=== PATIENT | male | born 1970 | race Caucasian/White ===

== ENCOUNTER 2021-04-03 14:57 | Observation (INO) | payer BC, SELFPAY ==
[2021-04-03] VITALS (18 sets, daily range): BP systolic 122–137; BP diastolic 87–105; PULSE 92–106; RESP 13–21; TEMP 36.1–36.5; O2SAT 95–100; BMI 27.9
--- NOTE | ~2021-04-03 | CT_ITS ---
EXAMINATION: CTA brain carotid EXAM DATE: 04/03/2021 19:08 INDICATION: Transient alteration of awareness. Transient ischemic attack. TECHNIQUE: Spiral CTA of the carotid arteries was performed with intravenous injection 100 cc of Om nipaque 350. Axial, coronal, sagittal reformatted images reviewed. Additional reformatted images cre ated on dedicated 3-D workstation. NASCET comparable standard used to assess the degree of arterial stenosis. Spiral CT angiogram cerebral arteries performed with the same intravenous injection of con trast. Source images of the brain CTA transferred to dedicated workstation for 3-D rotational image c reation. Coronal, sagittal maximum intensity pixel images also reviewed. The dose-length product (D LP) for this examination was 1309.93 mGy-cm. The exposure was tailored according to patient size, a nd iterative reconstruction (ASIR) was used as additional dose reduction technique. Correlation is ma de to noncontrast head CT same date. FINDINGS: There is bilateral carotid bulb 0% stenosis. The right vertebral artery is dominant. There is right-sided posterior communicating artery dominant posterior cerebral artery. There is left-sided posterior communicating artery dominant posterior cerebral artery. There is no carotid or vertebra l basilar arterial dissection or fibromuscular dysplasia. There are no cerebral artery aneurysms. The re is symmetric cerebral artery arborization. The sagittal, transverse and sigmoid sinuses enhance no rmally, no venous sinus thrombosis. Internal cerebral veins also enhance normally. Incidental Findings: Mild to moderate cervical spondylosis. IMPRESSION: 1. No acute carotid or intracranial findings. 2. Bilateral carotid 0% stenosis. Reviewed, dictated and finalized at location G. L OWNER OPERATOR TRUCK DRIVER
--- NOTE | ~2021-04-03 | XR_ITS ---
EXAMINATION: XR chest 2V EXAM DATE: 04/03/2021 17:41 INDICATION: PT Episode Of Confusion Today,No Hx. TECHNIQUE: Frontal and lateral projections of the chest obtained and reviewed. There is no prior musa dy for comparison. FINDINGS: The lungs are clear. There are no pleural effusions. The cardiomediastinal silhouette is within normal limits. There is no pneumothorax suspected. The bones and soft tissues are unremarkab le. IMPRESSION: No acute cardiopulmonary findings. Reviewed, dictated and finalized at location G. EMS DESIGN ENGINEER
--- NOTE | ~2021-04-03 | MR_ITS ---
EXAMINATION: MR brain/brain stem wo con EXAM DATE: 04/04/2021 12:12 INDICATION: Transient alteration of awareness, transient ischemic attack. TECHNIQUE: Magnetic resonance imaging (MRI) of the brain/brain stem obtained without contrast. Sagitt al T1, axial diffusion, gradient echo (T2*), T1, T2, FLAIR sequences obtained. There is no prior st udy for comparison. FINDINGS: There are no areas of restricted diffusion to suggest acute infarction. There is no acute hemorrhage seen on the T2*, a hemosiderin sensitive sequence. No intraparenchymal brain mass. The ve ntricles are normal in size. There are no extra-axial collections. Flow voids are seen in the cereb ral arteries on the T2-weighted sequences consistent with their expected patency. The orbits are unr emarkable. Soft tissue is unremarkable. Mild ethmoid mucoperiosteal thickening. Small maxillary si nus retention cysts or polyps. IMPRESSION: 1. Unremarkable brain MRI examination. Reviewed, dictated and finalized at location B. MYSQL DEVELOPER
--- NOTE | ~2021-04-03 | CT_ITS ---
EXAMINATION: CT brain wo con EXAM DATE: 04/03/2021 16:14 INDICATION: Altered mental status. Sudden onset confusion today while on treadmill. TECHNIQUE: Spiral CT of the head was performed without contrast. Axial, coronal and sagittal images were reviewed. The dose-length product (DLP) for this examination was 681.00 mGy-cm. The exposure w as tailored according to patient size, and iterative reconstruction (ASIR) was used as additional dos e reduction technique. There is no prior study for comparison. FINDINGS: There is no acute intraparenchymal hemorrhage. No evidence of intraparenchymal brain mass lesion. No evidence of acute infarction. There is no mass effect or midline shift. The ventricles are normal in size. There are no extra-axial collections. There are no acute calvarial fractures. T he orbits are unremarkable. Soft tissue is unremarkable. Mild left ethmoid mucoperiosteal thickenin g. IMPRESSION: 1. No acute intracranial findings. Reviewed, dictated and finalized at location G. AWER
[2021-04-03 15:12] LABS: Glucose Point of Care 97 mg/dl (65-105)
--- NOTE | 2021-04-03 15:46 | ECG_ITS ---
Measurements Intervals [place] Rate: 102 P: 46 MS: 135 QRS: -40 QRSD: 94 T: 23 QT: 314 QTc: 410 Interpretive Statements SINUS TACHYCARDIA LEFT AXIS DEVIATION BORDERLINE R WAVE PROGRESSION, ANTERIOR LEADS MINIMAL Q WAVES- HIGH LATERAL LEADS BASELINE ARTIFACT- I, III, AVL, V1 BORDERLINE ECG Electronically Signed On 04-03-2021 20:16:04 ADVERTISING SALES ASSISTANT by Rickey Brink D.O.
--- NOTE | 2021-04-03 15:59 | ED.AMS ---
HPI - Altered Mental Status General Chief Complaint: Altered Mental Status Stated Complaint: CONFUSION Time Seen by Provider: 04/03/21 15:58 Source: patient Mode of arrival: ambulatory Limitations: no limitations History of Present Illness HPI narrative: Patient is a 51-year-old male complaining of sudden onset of confusion while walking on a treadmill at the gym. Patient denies any speech or visual disturbance, focal weakness or numbness, unsteady gait, chest pain, shortness of breath, abdominal pain, nausea, vomiting, diarrhea, diaphoresis, fever or chills. Patient has no complaints at this time. Patient is alert and oriented x2, gave the wrong month but the right year. Related Data Allergies Allergy/AdvReac Type Severity Reaction Status Date / Time shellfish derived Allergy Unknown Verified 04/03/21 15:44 Review of Systems Review of Systems: All systems reviewed & are unremarkable except as noted in HPI and below Constitutional: Constitutional: Denies body ache(s), Denies chills, Denies excessive sweating, Denies fatigue, Denies fever(s), Denies headache(s), Denies lethargy, Denies malaise, Denies weakness and Denies weight loss Eyes: Eyes: Denies blurry vision, Denies change in vision and Denies loss of vision ENT: Denies dizziness, Denies ear discharge, Denies headache(s), Denies lip swelling, Denies epistaxis, Denies nasal congestion, Denies neck pain, Denies throat swelling and Denies tongue swelling Cardiovascular: Cardiovascular: Denies chest pain, Denies chest pain at rest, Denies chest pain with activity, Denies diaphoresis, Denies rapid heart rate, Denies edema, Denies irregular heart rhythm, Denies lightheadedness, Denies palpitations, Denies dyspnea and Denies dyspnea on exertion Respiratory: Respiratory: Denies chest congestion, Denies cough, Denies hemoptysis, Denies dyspnea and Denies dyspnea on exertion Gastrointestinal: Gastrointestinal: Denies abdominal pain, Denies melena, Denies hematochezia, Denies diarrhea, Denies nausea, Denies vomiting and Denies hematemesis Musculoskeletal: Musculoskeletal: Denies abnormal gait, Denies deformity, Denies joint swelling, Denies limited range of motion, Denies neck pain and Denies numbness Neurologic: Denies Abnormal speech present, Denies abnormal gait, Denies dizziness, Denies headache(s), Denies focal weakness, Denies loss of vision, Denies numbness, Denies Other visual disturbances, Denies Sensory deficit (Neuro) and Denies weakness Psychiatric: Psychiatric: Denies confusion, Denies depression, Denies auditory hallucinations, Denies homicidal ideation and Denies suicidal ideation Endocrine: Endocrine: Denies cold intolerance, Denies excessive sweating, Denies fatigue, Denies heat intolerance and Denies palpitations Hematologic/Lymphatic: Hematologic/Lymphatic: Denies easy bleeding and Denies easy bruising Allergic/Immunologic: Allergic/Immunologic: Denies lip swelling, Denies throat swelling and Denies tongue swelling PMFSH Comments Past medical history: None Family history: Negative for CVA, aneurysm, RI or coronary disease Social history: Non-smoker no EtOH or drug use Exam Const: General: cooperative, healthy appearing, comfortable, no acute distress, well developed, alert and awake; No confusion Orientation/consciousness: oriented to person, oriented to place, oriented to time, patient oriented x3 and No confusion Limitations: no limitations HENMT: Head: normal to inspection, normocephalic and atraumatic Ears: hearing grossly normal bilaterally, TM normal on the right and TM normal on the left General nose exam: Normal external nose present, Normal nares present and No nasal discharge present Face and sinus: normal facial exam Mouth: Yes Normal oral and palatal mucosa present, Yes lip normal, Yes tongue normal and Yes oropharynx normal Throat: posterior oropharynx normal, tonsils normal and uvula midline Eyes: General: appearance normal, both eyes and all relat
[2021-04-03 16:12] LABS: Basophils Absolute Auto 0.1 K/mm3 (0.0-0.1); Basophils Percent Auto 0.6 % (0.2-1.2); Eosinophils Percent Auto 0.3 % (0-4.4); Hematocrit 48.4 % (42.0-52.0); Hemoglobin 16.6 g/dL (14.0-18.0); Immature Granulocyte Absolute 0.06 K/mm3 (0.00-0.031); Immature Granulocyte Percent A 0.4 % (0-0.5); Lymphocytes Absolute Auto 1.28 K/mm3 (0.9-3.2); Lymphocytes Percent Auto 8.6 % (18.3-44.2); Mean Corpuscular HGB Conc 34.3 g/dl (32-36); Mean Corpuscular Hemoglobin 30.2 pg (26-34); Mean Platelet Volume 8.9 fl (7.4-10.4); Monocytes Absolute Auto 0.6 K/mm3 (0.1-0.6); Monocytes Percent Auto 4.3 % (2.6-8.5); Neutrophils Absolute Auto 12.7 K/mm3 (1.3-6.7); Neutrophils Percent Auto 85.8 % (45.5-73.1); Platelet Count Result 266 k/mm3 (150-375); White Blood Count 14.9 K/mm3 (4.5-10.0)
[2021-04-03 16:15] LABS: Add Urine Microscopic? NO; Appearance Urine Clear (Clear); Bilirubin Urine Negative (Negative); Blood Urine Negative (Negative); Color Urine Yellow (Yellow); Glucose Urine UA Negative (Negative); Ketones Urine Negative (Negative); Leukocyte Esterase Ur Negative LEU/UL (Negative); Nitrate Urine Negative (Negative); Protein Urine Negative (Negative); Specific Grav Ur 1.016 (1.001-1.035); Urobilinogen Urine Negative mg/dL (<2.0)
[2021-04-03 16:21] LABS: Prothrombin Time 12.8 Seconds (11.1-14.7)
[2021-04-03 16:22] LABS: Partial Thromboplastin Time 25.8 SECONDS (22.3-36.8)
[2021-04-03 16:25] LABS: Alanine Aminotransferase 24 U/L (4-50); Albumin Level 4.9 g/dL (3.5-5.1); Alkaline Phosphatase 60 U/L (38-126); Anion Gap 6 mmol/L (8-16); Aspartate Amino Transferase 24 U/L (17-59); Bilirubin,Total 0.8 mg/dL (0.2-1.3); Blood Urea Nitrogen 13 mg/dL (9-20); Calcium 9.5 mg/dL (8.4-10.2); Carbon Dioxide 30 mmol/L (22-30); Chloride 104 mmol/L (98-107); Estimated CRCL calculation 84 ml/min; Estimated Glomerular Filt Rate > 60; Glucose 111 mg/dL (65-110); Sodium 140 mmol/L (137-145)
[2021-04-03 17:03] LABS: Amphetamine Screen Urine Negative (Negative); Barbiturate Screen Urine Negative (Negative); Benzodiazepines Screen Urine Negative (Negative); Cannabinoid Screen Urine Negative (Negative); Cocaine Screen Urine Negative (Negative); Methadone Screen Urine Negative (Negative); Opiate Screen Urine Negative (Negative); Phencyclidine Screen Urine Negative (Negative)
[2021-04-03] MEDS: SODIUM CHLORIDE 0.9% IV 1,000 ML 999 ML IV CONT (17:08)
--- NOTE | 2021-04-03 19:52 | PM.IMHP ---
H&P: HPI History of Present Illness Date/Time: 04/03/21 19:52 Chief Complaint: Altered mental status Narrative: This is a 51-year-old male with known significant past medical history. Patient presents today to the emergency room after he had an episode confusion, disorientation, he did know or he was at while he was at the gym who contacted his and came over to picking up patient was noted not to remember none of these and repetitive questions according to the . At the time of my visit patient was aware of where he was at however patient with no recollection of above-mentioned event seemed appropriate knew the date where he was at and why he was here. He has been in his usual state of health up until this he denies any fevers, rigors, chills, vision changes, headaches, dizziness, vertigo, lightheadedness ,near-syncope, syncope, nausea, vomiting, abdominal pain, diarrhea, calves pain, chest pain, palpitations, PND or orthopnea,no rashes,no muscle pain or aches, no joint swelling, patient has been in a health roll and has lost 70 lb intentionally with diet and exercise. Preliminary workup has been essentially nonrevealing. Patient is been admitted for further evaluation management and treatment. Review of Systems Review of Systems: Confusion, disorientation. Constitutional: Constitutional: Denies chills, Denies daytime sleepiness, Denies difficulty sleeping, Denies excessive sweating, Denies fatigue, Denies fever(s), Denies frequent falls, Denies headache(s), Denies lethargy, Denies malaise, Denies night sweats, Denies poor appetite, Denies weakness and Reports weight loss (Intentional with diet and exercise of 70 lb) Eyes: Eyes: Denies change in vision, Denies diplopia, Denies loss of vision and Denies other visual disturbances ENT: Denies dysphagia, Denies vertigo, Denies dizziness, Denies nasal congestion, Denies nasal discharge, Denies nasal obstruction and Denies odynophagia Cardiovascular: Cardiovascular: Denies chest pain, Denies chest pain with activity, Denies diaphoresis, Denies pedal edema, Denies edema, Denies irregular heart rhythm, Denies claudication, Denies leg ulcers, Denies leg edema, Denies lightheadedness, Denies radiating jaw, neck or arm pain, Denies palpitations, Denies dyspnea on exertion, Denies orthopnea and Denies paroxysmal nocturnal dyspnea Gastrointestinal: Gastrointestinal: Denies abdominal pain, Denies dyspepsia, Denies heartburn, Denies diarrhea, Denies nausea and Denies vomiting Genitourinary: Genitourinary: Denies dysuria and Denies flank pain Musculoskeletal: Musculoskeletal: Denies abnormal gait, Denies back pain, Denies myalgias, Denies arthralgias, Denies joint swelling, Denies limited range of motion, Denies muscle cramps, Denies muscle weakness, Denies neck pain and Denies tingling Integumentary/Breasts: Skin/Breast: Denies rash Neurologic: Denies Neuro-related abnormal movements, Denies Abnormal speech present, Denies abnormal gait, Denies behavioral changes, Reports confusion, Denies vertigo, Denies dizziness, Denies headache(s), Denies focal weakness, Denies loss of vision, Denies Sensory deficit (Neuro), Denies tingling, Denies paresthesias, Denies tremor(s), Denies disequilibrium and Denies weakness Psychiatric: Psychiatric: Reports no additional psychiatric complaints and Reports as per HPI Endocrine: Endocrine: Denies cold intolerance, Denies excessive sweating, Denies fatigue, Denies flushing, Denies heat intolerance, Denies polyphagia, Denies polydipsia, Denies polyuria and Denies palpitations Hematologic/Lymphatic: Hematologic/Lymphatic: Reports no additional hematologic/lymphatic complaints and Reports as per HPI Allergic/Immunologic: Allergic/Immunologic: Reports no additional allergic/immunologic complaints and Reports as per HPI [facility] Social History Social History Smoking status: Never smoker Second hand tobacco smoke exposure: No Alcohol intake: never Substance use type: does no
[2021-04-03] MEDS: LACTATED RINGERS 1,000 ML 125 ML IV CONT (20:01)
[2021-04-03 20:42] LABS: SARS-CoV-2 RNA PCR Negative
[2021-04-03 21:25] LABS: Troponin I < 0.012 ng/mL (0.000-0.034)
--- NOTE | 2021-04-03 22:44 | ADMGEN ---
This patient, Ben Simon, was admitted to Medical Room 261-01. Patient/family oriented to hospital policies and general routines including ID bracelet, bed and alarms, visiting hours, pain management, procedures, bathroom and other care routines, personal items, smoking policy, room service/diet, and visiting hours. Information on how to activate the Rapid Response Team has been discussed. Patient/Family are encouraged to report perceived risks to care and to ask questions if they do not understand what they are told or what they should do.
--- NOTE | 2021-04-04 | ECHO_ITS ---
Patient Info Name: Ben Simon Age: 51 years : 1970 Gender: Male Ht: 68 in Wt: 200 lbs BSA: 2.11 m2 HR: 86 bpm BP: 131 / 89 mmHg Heart Rhythm: Sinus Rhythm Exam Date: 04/04/2021 11:18 AM Exam Location: [facility] Patient Status: Outpatient Admit Date: 04/03/2021 Staff Ordering Physician: Rachid Vargas MD Shop Repairer: Heber Chaidez, OLIMPIACS, RT Attending Provider: Rachid Vargas MD Referring Physician: Sam PEREZ; Exam Type: CA echo doppler color flow Study Info Indications R94.31 - Abnormal electrocardiogram ECG EKG Complete two-dimensional, color flow and Doppler transthoracic echocardiogram is performed. Strain analysis performed. Summary 1. Complete two-dimensional, color flow and Doppler transthoracic echocardiogram is performed. 2. Essentially unremarkable echocardiogram. 3. Trivial amount of tricuspid insufficiency is within physiologic normal limits. Left Ventricle Left ventricular chamber dimension is normal. Left ventricular systolic function is normal, estimated at 60-65%. The left ventricular diastolic function is normal. Right Ventricle Right ventricular chamber dimension is normal. Left Atria Left atrial chamber dimension is normal. Right Atria Right atrial chamber dimension is normal. Aortic Valve The aortic valve is normal. Pulmonic Valve The pulmonic valve is normal. Mitral Valve The mitral valve has normal leaflets. Tricuspid Valve The tricuspid valve leaflets are normal. There is trace tricuspid valve regurgitation. Pericardium/Pleural The pericardium appears normal. Aorta The aortic root size at the sinus of Valsalva is normal. Left Ventricular Outflow Tract Name Value Normal LVOT 2D LVOT Diameter 2.1 cm LVOT Doppler LVOT Peak Gradient 6 mmHg LVOT Mean Gradient 3 mmHg LVOT VTI 21 cm LVOT VTI/AV VTI Ratio 0.8 LVOT Stroke Volume 75 ml LVOT CO 7.0 l/min LVOT CI 3.3 l/min/m2 Mitral Valve Name Value Normal MV Doppler MV Decel Pinal 269 cm/s2 MV PHT 68 ms MV Area (PHT) 3.3 cm2 4.0-5.0 MV Diastolic Function MV E Peak Velocity 63 cm/s MV A Peak Velocity 84 cm/s MV E/A 0.7 MV Decel Time 233 ms MV Annular TDI MV E/e' (Septal) 8.5 <=8.0 MV E/e' (Lateral)
[2021-04-04 00:45] LABS: Troponin I < 0.012 ng/mL (0.000-0.034)
[2021-04-04 03:34] LABS: Troponin I < 0.012 ng/mL (0.000-0.034)
[2021-04-04 06:00] VITALS: BP 132/75; PULSE 81; RESP 20; TEMP 36.1; O2SAT 99
--- NOTE | 2021-04-04 10:09 | PM.IMPN ---
Progress Note: A&P Assessment and Plan (1) Altered mental status: Qualifiers: Altered mental status type: unspecified Qualified Code(s): R41.82 - Altered mental status, unspecified Code(s): R41.82 - Altered mental status, unspecified Status: Acute Assessment and Plan: Transient episode of confusion and disorientation CT of the head with no acute changesreviewed ECG-->SR MRI pending Echocardiogram pending (2) Transient global amnesia: Code(s): G45.4 - Transient global amnesia Status: Acute Assessment and Plan: Resolved Continue to monitor Consider follow-up in the outpatient setting with Neurology Subjective Date/time seen: 04/04/21 10:09 Interval history: Pt seen and evaluated; labs, vs, diagnostic tests reviewed; pt AOX 4; denies any HADLEY, dizziness, CP, SOB Review of Systems Review of Systems: All systems reviewed & are unremarkable except as noted in HPI and below Exam Const: General: no acute distress, alert and awake Orientation/consciousness: patient oriented x3 HENMT: Head: normocephalic and atraumatic Ears: hearing grossly normal bilaterally and external ears normal Face and sinus: face symmetric Mouth: Yes Normal oral and palatal mucosa present Eyes: EOM: EOMs intact bilaterally Neck: Neck: full ROM, trachea midline and no JVD Resp: Effort & Inspection: normal respiratory effort Auscultation: clear to auscultation bilaterally Cardio: Jugular venous distension: no JVD Rate: regular rate Rhythm: regular rhythm Heart sounds: S1 normal heart sound present and S2 normal heart sound present GI: Inspection: normal to inspection GI Palp: Yes Soft to palpation Percussion: Yes normal to percussion Auscultation: normal bowel sounds : General: Yes no CVA tenderness Skin: General skin exam: normal color Rashes: no rashes Neuro: General: patient oriented x3 and no focal motor deficits Speech: normal speech Extrem: General: no clubbing, cyanosis or edema Psych: Appearance: grossly normal Affect: normal affect Judgement: Good judgement present (Psych) Objective Data Vital Signs Vital Signs: Vital Signs - 24 hr 04/03/21 14:59 04/03/21 15:45 04/03/21 16:59 Temperature 36.5 C Pulse Rate 103 H 104 H 98 Respiratory Rate 14 14 16 Blood Pressure 137/105 H 137/97 H 122/87 Pulse Oximetry 100 99 97 04/03/21 18:28 04/03/21 19:19 04/03/21 19:35 Temperature Pulse Rate 104 H 98 98 Respiratory Rate 14 15 16 Blood Pressure 135/89 133/92 H Pulse Oximetry 100 100 99 04/03/21 19:45 04/03/21 20:01 04/03/21 20:02 Temperature Pulse Rate 102 H 101 H 106 H Respiratory Rate 14 21 H 20 Blood Pressure 132/92 H Pulse Oximetry 98 97 98 04/03/21 20:16 04/03/21 20:32 04/03/21 20:45 Temperature Pulse Rate 105 H 101 H 103 H Respiratory Rate 19 20 19 Blood Pressure Pulse Oximetry 96 99 98 04/03/21 21:00 04/03/21 21:01 04/03/21 21:15 Temperature Pulse Rate 104 H 99 101 H Respiratory Rate 17 13 14 Blood Pressure 123/88 Pulse Oximetry 97 04/03/21 21:34 04/03/21 21:45 04/03/21 22:50 Temperature 36.1 C L Pulse Rate 103 H 96 92 Respiratory Rate 20 20 20 Blood Pressure 131/89 Pulse Oximetry 95 95 98 04/04/21 06:00 Temperature 36.1 C L Pulse Rate 81 Respiratory Rate 20 Blood Pressure 132/75 Pulse Oximetry 99 Intake/Output Intake/Output: Intake & Output 04/01/21 04/02/21 04/03/21 04/04/21 23:59 23:59 23:59 23:59 Intake Total 1000 600 Output Total 800 Balance 1000 -200 Meds/Results Medications: Active Medications Generic Name Dose Route Start Last Admin Trade Name Raisa PRN Reason Stop Dose Admin Lactated Ringer's 1,000 mls @ 125 mls/hr 04/03/21 19:40 04/03/21 20:01 Lr - Lactated Ringers Iv IV CONT 125 mls/hr .Q8H ALICIA Administration Perflutren Lipid Microsphere 0 ml 04/03/21 20:27 Perflutren Lipid Microspheres 1.5 Ml Vial Diluted To 10 Ml Total Volume IV PUSH
--- NOTE | 2021-04-04 10:12 | WPDNEURCNPN ---
Assessment and Plan Additional Plan sudden episode of confusion and disorientation with negative evaluation up until now except that he had leukocytosis on the initial CBC even though his gross neurological examination at this stage is normal and the scanning procedures are negative ,will wait for the MRI of the brain before considering the spinal tap or not but his CTA is negative as well with no evidence of aneurysm Consult date: 04/04/21 HPI: Ben Simon is a 51 year old maleAdmitted to the hospital through the emergency room with the complaints of confusion with change in the mental status he was brought to the emergency room by ambulance with no obvious limitations at the time of initial admission he developed sudden onset of confusion while walking on a treadmill at the gym with no visual or speech difficulties and also with no weakness or numbness of 1 side or other side no difficulties in breathing and also no GI symptoms. Patient is reportedly allergic to shellfish and family history is negative for the stroke as well as aneurysm, evaluation documented him to be afebrile with blood pressure of 135/105, electrolytes normal but CBC with leukocytosis that is WBCs of 14.9 electrolytes normal, toxicology negative and COVID negative as well, initial chest x-ray negative, CTA negative with no evidence of aneurysm or any territorial vascular blockage, and also CT of the head negative Review of Systems Review of Systems: All systems reviewed & are unremarkable except as noted in HPI and below PMFSH Social History Social History Smoking status: Never smoker Second hand tobacco smoke exposure: No Alcohol intake: never Substance use type: does not use Spiritual care concerns: No Meds Home Medications and Allergies Home Medications Medication Instructions Recorded Confirmed Type No Home Medications 04/03/21 04/03/21 History Allergies Allergy/AdvReac Type Severity Reaction Status Date / Time shellfish derived Allergy Unknown Verified 04/03/21 15:44 Vital Signs Vital Signs - 24 hr 04/03/21 14:59 04/03/21 15:45 04/03/21 16:59 Temperature 36.5 C Pulse Rate 103 H 104 H 98 Respiratory Rate 14 14 16 Blood Pressure 137/105 H 137/97 H 122/87 Pulse Oximetry 100 99 97 04/03/21 18:28 04/03/21 19:19 04/03/21 19:35 Temperature Pulse Rate 104 H 98 98 Respiratory Rate 14 15 16 Blood Pressure 135/89 133/92 H Pulse Oximetry 100 100 99 04/03/21 19:45 04/03/21 20:01 04/03/21 20:02 Temperature Pulse Rate 102 H 101 H 106 H Respiratory Rate 14 21 H 20 Blood Pressure 132/92 H Pulse Oximetry 98 97 98 04/03/21 20:16 04/03/21 20:32 04/03/21 20:45 Temperature Pulse Rate 105 H 101 H 103 H Respiratory Rate 19 20 19 Blood Pressure Pulse Oximetry 96 99 98 04/03/21 21:00 04/03/21 21:01 04/03/21 21:15 Temperature Pulse Rate 104 H 99 101 H Respiratory Rate 17 13 14 Blood Pressure 123/88 Pulse Oximetry 97 04/03/21 21:34 04/03/21 21:45 04/03/21 22:50 Temperature 36.1 C L Pulse Rate 103 H 96 92 Respiratory Rate 20 20 20 Blood Pressure 131/89 Pulse Oximetry 95 95 98 04/04/21 06:00 Temperature 36.1 C L Pulse Rate 81 Respiratory Rate 20 Blood Pressure 132/75 Pulse Oximetry 99 Exam Const: General: cooperative, healthy appearing, comfortable and no acute distress Nutritional Appearance: average body habitus Orientation/consciousness: oriented to person, oriented to place and oriented to time Limitations: no limitations Eyes: General: appearance normal, both eyes and all related structures Visual Gomes: normal visual gomes by confrontation Alignment and Position: alignment normal Periorbital: periorbital findings normal Eyelids: eyelids normal Conjunctivae: conjunctivae normal Sclera: sclerae normal Cornea: corneas normal Pupils: Equal, round and reactive pupils present EOM: EOMs intact bilaterally Direct
[2021-04-04 10:30] VITALS: O2SAT 96
[2021-04-04 14:00] VITALS: BP 115/75; PULSE 85; RESP 20; TEMP 36.4; O2SAT 99
[2021-04-04 22:00] VITALS: BP 139/83; PULSE 81; RESP 20; TEMP 36.6; O2SAT 98
[2021-04-05 06:00] VITALS: BP 125/74; PULSE 74; RESP 20; TEMP 36.3; O2SAT 99
[2021-04-05 06:09] LABS: Hematocrit 46.1 % (42.0-52.0); Hemoglobin 15.7 g/dL (14.0-18.0); Mean Corpuscular HGB Conc 34.1 g/dl (32-36); Mean Corpuscular Hemoglobin 30.4 pg (26-34); Mean Corpuscular Volume 89.3 fl (80-100); Mean Platelet Volume 8.9 fl (7.4-10.4); Platelet Count Result 220 k/mm3 (150-375); Red Blood Count 5.16 M/mm3 (4.6-6.20); Red Cell Distribution Width 13.1 % (11.5-14.5); White Blood Count 8.5 K/mm3 (4.5-10.0)
[2021-04-05 06:19] LABS: Anion Gap 1 mmol/L (8-16); Blood Urea Nitrogen 13 mg/dL (9-20); Calcium 9.1 mg/dL (8.4-10.2); Carbon Dioxide 32 mmol/L (22-30); Chloride 105 mmol/L (98-107); Estimated CRCL calculation 74 ml/min; Estimated Glomerular Filt Rate > 60; Glucose 96 mg/dL (65-110); Potassium 4.1 mmol/L (3.4-5.0); Sodium 138 mmol/L (137-145)
--- NOTE | 2021-04-05 10:55 | WPDNEUROLOGY ---
Neurology EEG Report General Information Date of Study: 04/05/21 TEST eeg DIAGNOSIS Altered mental status CONDITION OF RECORDING awake drowsy and sleep EEG NUMBER [id number] CLINICAL HISTORY patient reported he was at the gym 2 days ago when he became confused and did not know where he was confusion lasted for 2 to 3 hours and has been back to normal since then EEG DESCRIPTION basic resting occipital frequency consists of medium voltage 8 to 10 hertz per 2nd alpha admixed with low-voltage 15 to 18 hertz per 2nd beta. Low-voltage beta activity seen diffusely admixed with waxing and waning posterior alpha rhythm during drowsiness. Bilateral symmetrical sleep activity seen during sleep. Hyperventilation not done. Photic stimulation not done. Non paroxysmal. Nonfocal. Nonlateralizing. IMPRESSION Normal record
--- NOTE | 2021-04-05 12:38 | WPDNEUROPN ---
Progress Note: A&P Additional Plan transient global amnesia with negative evaluation including MRI though we have not done the spinal fluid studies he can return to the home with instruction for the follow-up in 3 months or give us a call if any problem arises at this stage is EEG is normal to all the pros and cons are discussed with him Time Spent With Patient Time with patient: 15 - 25 minutes Subjective Date/time seen: 04/05/21 12:38 51 years old with sudden episode of confusion and disorientation and negative evaluation up until now including the CTA and MRI of the brain also an EEG on repeat examination he is completely normal was advised regarding the diagnosis of transient global amnesia with instruction to return to the office for the follow-up in 3 months if any unusual symptomatology arises give us call Review of Systems Review of Systems: All systems reviewed & are unremarkable except as noted in HPI and below Exam Const: General: cooperative, healthy appearing, comfortable, no acute distress, alert and awake Nutritional Appearance: average body habitus Orientation/consciousness: oriented to person, oriented to place and oriented to time Limitations: no limitations Eyes: General: appearance normal, both eyes and all related structures Resp: Effort & Inspection: normal respiratory effort and able to speak in complete sentences Skin: General skin exam: normal color Neuro: General: oriented to person, oriented to place and oriented to time Cranial nerves: Yes CN's II-XII intact bilaterally Cognition (Neuro): normal cognition Speech: normal speech Gait exam (Neuro): Normal gait present Motor exam (neuro): 5/5 motor strength present throughout Sensory Exam: normal sensation Deep tendon reflexes (DTR's): Right triceps reflex intensity grade: 1+, Left triceps reflex intensity grade: 1+, Rt Biceps (C5, C6): 1+, Left biceps reflex intensity grade: 1+, Right brachioradialis reflex intensity grade: 1+, Left brachioradialis reflex intensity grade: 1+, Right patellar reflex intensity grade: 1+, Left patellar reflex intensity grade: 1+, Right ankle reflex intensity grade: 1+ and Left ankle reflex intensity grade: 1+ Plantar Reflex Responses: downgoing: bilateral Coordination: [id number] test normal Psych: Appearance: grossly normal Mental Status: mental status grossly normal Speech and movement: Normal speech and movement present Affect: normal affect Attitude: cooperative Thought process: Normal thought process present Thought content: Yes Normal thought content present Insight: Good insight present (Psych) Judgement: Good judgement present (Psych) Objective Data Vital Signs Vital Signs: Vital Signs - 24 hr 04/04/21 14:00 04/04/21 22:00 04/05/21 06:00 Temperature 36.4 C 36.6 C 36.3 C L Pulse Rate 85 81 74 Respiratory Rate 20 20 20 Blood Pressure 115/75 139/83 125/74 Pulse Oximetry 99 98 99 Intake/Output Intake/Output: Intake & Output 04/02/21 04/03/21 04/04/21 04/05/21 23:59 23:59 23:59 23:59 Intake Total 1000 2000 990 Output Total 1550 Balance 1000 450 990 Meds/Results Medications: Active Medications Generic Name Dose Route Start Last Admin Trade Name Freq PRN Reason Stop Dose Admin Perflutren Lipid Microsphere 0 ml 04/03/21 20:27 Perflutren Lipid Microspheres 1.5 Ml Vial Diluted To 10 Ml Total Volume IV PUSH ONCE PRN adequate visualization Protocol Radiology Results: ITS Impressions Head CT 04/03/21 16:23 IMPRESSION: 1. No acute intracranial findings. Chest X-Ray 04/03/21 17:45 IMPRESSION: No acute cardiopulmonary findings. Head/Neck CTA 04/03/21 19:09 IMPRESSION: 1. No acute carotid or intracranial findings. 2. Bilateral carotid 0% stenosis. Brain MRI 04/04/21 12:21 IMPRESSION: 1. Unremarkable brain MRI examination. Labs Labs: Laboratory Results - last 24 hr 04/05/21 04/05/21 05:47
--- NOTE | 2021-04-05 14:59 | PM.DS ---
DS: Admitting Diagnosis Discharge Date 04/05/21 Admitting Diagnosis (1) Altered mental status: Qualifiers: Altered mental status type: unspecified Qualified Code(s): R41.82 - Altered mental status, unspecified Code(s): R41.82 - Altered mental status, unspecified Status: Acute Assessment and Plan: (2) Transient global amnesia: Code(s): G45.4 - Transient global amnesia Status: Acute Assessment and Plan: DS: Discharge Diagnosis Discharge Diagnosis (1) Transient global amnesia: Code(s): G45.4 - Transient global amnesia Status: Acute (2) Altered mental status: Qualifiers: Altered mental status type: unspecified Qualified Code(s): R41.82 - Altered mental status, unspecified Code(s): R41.82 - Altered mental status, unspecified Status: Acute DS: Summary Hospital Course Reason for hospitalization: Altered mental status Hospital Course: 51 yr old male presents to the Emergency with chief complaint of altered mental status while exercising on a treadmill. Confusion resolved spontaneously after couple of hours. During hospitalization patient had a benign clinical course he was seen by Neurology and diagnosis of transient global amnesia was given to this event. Patient is recommended to take baby aspirin and follow up with Neurology in outpatient setting within 3 months. EEG and MRI were negative Status at Discharge Functional status at discharge: independent ambulation Time Spent with Patient Time attestation: Total time spent providing and/or coordinating discharge services: Time spent: Less than 30 minutes DS: Data Data Completed and Pending Labs on day of discharge: Labs from last 24 hours 04/05/21 04/05/21 05:47 05:47 WBC 8.5 RBC 5.16 Hgb 15.7 Hct 46.1 MCV 89.3 MCH 30.4 MCHC 34.1 RDW 13.1 Plt Count 220 MPV 8.9 Sodium 138 Potassium 4.1 Chloride 105 Carbon Dioxide 32 H Anion Gap 1 L BUN 13 Creatinine 1.00 Estim Creat Clear Calc 74 Estimated GFR > 60 Glucose 96 Calcium 9.1 Discharge Plan Discharge Attending physician on discharge: Catrachita Shannon Consulting providers: Geovani Patel Discharging Clinician: Cartachita Shannon Anticipated Discharge Date/Time: 04/05/21 14:55 Patient Disposition: Home, Self-Care Activity: may shower Diet: as tolerated Discharge Instructions: n return to the home Neurology recs: follow-up in 3 months or give us a call if any problem arises Patient Instructions: Antibiotic Form, Altered Mental Status (GEN), Transient Global Amnesia (GEN) Stand Alone Forms: General Discharge Information Follow-up/Referrals: Medardo Long MD [Primary Care Provider] - Geovani Patel MD [Physician] - Discharge Medications: New aspirin 81 mg capsule 81 mg PO DAILY Qty: 60 RF: 2 Date of admission: 04/03/21 19:39 Primary Care Provider: Medardo Long Admitting Provider: Rachid Vargas V. Attending physician on admission: Catrachita Shannon Condition: Serious
== END 2021-04-05 15:22 | disposition home or self-care (01) ==
LOC: ANHED 15:58 → ANH2MED 21:12
PROVIDERS: Emergency Medicine; Nurse Practitioner Adult Health; Admitting Provider Internal Medicine; Emergency Provider Emergency Medicine; PCP Emergency Medicine; Visit Provider Hospitalist
DX: G45.4 Transient global amnesia (principal); R41.82 Altered mental status, unspecified; Z20.822 Contact with and (suspected) exposure to COVID-19; R94.31 Abnormal electrocardiogram [ECG] [EKG]
CPT/HCPCS: 36415; 70450; 70496; 70498; 70551; 71046; 80048; 80053; 80307; 81003; 82948; 84484; 85025; 85027; 85610; 85730; 93005; 93306; 95816; 96360; 99285; C9803; G0378; G0379; J7030; J7120; Q9967; U0003; U0005

== ENCOUNTER 2023-10-10 00:26 | Day surgery (SDC) | payer BC, SELFPAY ==
[2023-09-19 14:23] VITALS: BMI 26.6
--- NOTE | 2023-10-09 17:21 | P.PNAN_ITS ---
Anes - Eval Pre Procedure Procedure: Operation Date: 10/10/23 07:30 Proposed Procedures p Screening Colonoscopy - Phu Tenorio MD Date/Time: 10/09/23 17:21 Pre Op Diagnosis: Neoplasm screening Patient Data Age: 53 Gender: M Height: 1.73 m Weight: 79.5 kg Allergies Allergy/AdvReac Type Severity Reaction Status Date / Time shellfish derived Allergy Unknown Verified 09/19/23 14:23 Patient hx anesthesia problems: none Family hx anesthesia problems: none Results Review: All pre-operative results and documents have been reviewed as part of the pre- operative evaluation. [facility] Past Medical History Medical History (Updated 10/09/23 @ 17:22 by Latoya Conway CRNA) Arthritis Back pain DJD (degenerative joint disease) Overweight Social History Social History Smoking status: Never smoker Second hand tobacco smoke exposure: No Alcohol intake: never Substance use type: does not use Living arrangements: alone Spiritual care concerns: No Exam Day of Procedure 10/09/23 17:21
[2023-10-10 06:35] VITALS: BP 136/82; PULSE 92; RESP 20; TEMP 36.1; O2SAT 100; BMI 26.9
[2023-10-10] MEDS: LACTATED RINGERS 1,000 ML 150 ML IV CONT (06:50)
--- NOTE | 2023-10-10 07:29 | P.PNAN_ITS ---
Anes - Initial Pre Proc Eval Procedure: Operation Date: 10/10/23 07:30 Proposed Procedures p Screening Colonoscopy - Phu Tenorio MD Date/Time: 10/10/23 07:29 Surgeon: Phu Tenorio MD Pre Op Diagnosis: Neoplasm screening Patient Data Age: 53 Gender: M Height: 1.73 m Weight: 80.5 kg Last Vital Signs Temp 97.0 F L 10/10/23 06:35 Pulse 92 10/10/23 06:35 Resp 20 10/10/23 06:35 BP 136/82 10/10/23 06:35 Pulse Ox 100 10/10/23 06:35 O2 Del Method Room Air 10/10/23 06:35 Allergies Allergy/AdvReac Type Severity Reaction Status Date / Time shellfish derived Allergy Unknown Verified 10/10/23 06:41 Patient hx anesthesia problems: none Family hx anesthesia problems: none Results Review: All pre-operative results and documents have been reviewed as part of the pre- operative evaluation. PMF Past Medical History Medical History (Updated 10/09/23 @ 17:22 by Latoya Conway CRNA) Arthritis Back pain DJD (degenerative joint disease) Overweight Social History Social History Smoking status: Never smoker Second hand tobacco smoke exposure: No Alcohol intake: never Substance use type: does not use Living arrangements: alone Spiritual care concerns: No Anes - Eval Final PreProcedure Day of Procedure 10/10/23 07:29 Patient weight: overweight Heart: regular rate and rhythm Lungs: clear to auscultation Airway: Mallampati scale class II Neurological: alert and oriented Last oral intake: >/= 8 hours ASA classification: II Emergent: no Anesthetic plan: proceed Anesthesia type and monitoring: general GIVS and standard monitoring Results Review: All pre-operative results and documents have been reviewed as part of the pre- operative evaluation. Informed Consent: The patient's anesthetic plan and its attendant risks and benefits were discussed with the patient/family/POA. Questions were solicited and answers provided to the satisfaction of the patient/family/POA.
--- NOTE | 2023-10-10 07:36 | PM.HPGS ---
History of Present Illness History of Present Illness Consent: Risks, benefits, and alternatives have been discussed and questions answered. Patient agrees to proceed with procedure. Chief complaint: Neoplasm screening Narrative: Ben Simon is a 53 year old male here for first screening colonoscopy Review of Systems Review of Systems: All systems reviewed & are unremarkable except as noted in HPI and below PMFSH Past Medical History Medical History (Updated 10/10/23 @ 07:36 by Phu Tenorio MD) Arthritis Back pain Colon cancer screening DJD (degenerative joint disease) Overweight Social History Social History Smoking status: Never smoker Second hand tobacco smoke exposure: No Alcohol intake: never Substance use type: does not use Living arrangements: alone Spiritual care concerns: No Meds Home Medications and Allergies Allergies Allergy/AdvReac Type Severity Reaction Status Date / Time shellfish derived Allergy Unknown Verified 10/10/23 06:41 Vital Signs Vital Signs - 24 hr 10/10/23 06:35 Temperature 97.0 F L Pulse Rate 92 Respiratory Rate 20 Blood Pressure 136/82 Pulse Oximetry 100 Oxygen Delivery Room Air Exam Const: General: comfortable and no acute distress HENMT: Face/Nose/Sinus: Normal nares present Eyes: General: appearance normal, both eyes and all related structures Neck: Neck: no JVD Resp: Auscultation: clear to auscultation bilaterally Cardio: Rate: regular rate Rhythm: regular rhythm GI: Inspection: non-distended GI Palp: Yes Soft to palpation Skin: General skin exam: normal color Neuro: General: gait normal Speech: normal speech Extrem: General: normal to inspection Psych: Mental Status: mental status grossly normal Assessment and Plan Assessment and plan (1) Colon cancer screening: Code(s): Z12.11 - Encounter for screening for malignant neoplasm of colon Status: Acute Assessment and Plan: colonoscopy
[2023-10-10 07:53] VITALS: BP 116/73; PULSE 83; RESP 20; O2SAT 93
[2023-10-10 08:03] VITALS: BP 111/80; PULSE 71; RESP 20; O2SAT 98
[2023-10-10 08:17] VITALS: BP 120/76; PULSE 70; RESP 20; O2SAT 100
== END 2023-10-10 08:25 | disposition home or self-care (01) ==
PROVIDERS: PCP Family Medicine; Visit Provider Internal Medicine Gastroenterology
PROC: 0DJD8ZZ Inspection of Lower Intestinal Tract, Via Natural or Artificial Opening Endoscopic (ICD-10-PCS; CPT 45378; principal; 2023-10-10 07:30)
DX: Z12.11 Encounter for screening for malignant neoplasm of colon (principal); D12.5 Benign neoplasm of sigmoid colon; K64.8 Other hemorrhoids
CPT/HCPCS: 45385; 88305; J2704; J7120

== ENCOUNTER 2024-07-10 09:16 | Outpatient (CLI) | payer BC, SELFPAY ==
--- NOTE | ~2024-07-10 | XR_ITS ---
AP view of the pelvis and AP and lateral views of the left hip Clinical history: Pain Findings: No acute fracture or dislocation is seen. Osseous alignment is anatomic. There is minimal d egenerative change of both hip joints. Soft tissues are unremarkable. 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 Reviewed, dictated and finalized at location . 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
== END 2024-07-10 09:17 | disposition home or self-care (01) ==
LOC: MICIMG 09:20
PROVIDERS: PCP Nurse Practitioner Family; Visit Provider Nurse Practitioner Family
DX: M25.552 Pain in left hip (principal)
CPT/HCPCS: 73502